=== PATIENT | male | born 1965 | race Caucasian/White ===

== ENCOUNTER 2016-10-16 10:37 | Inpatient (IN) ==
--- NOTE | 2016-10-15 20:59 | Discharge Summary ---
<Ellen Quinonez - Last Filed: 10/15/16 20:57> Date of Encounter: 10/15/16 - Discharge Diagnosis (1) Arthritis of knee, left Priority: Primary Status: Acute (2) Chronic renal disease Priority: Secondary Status: Chronic Qualifiers: Chronic kidney disease stage: stage 3 (moderate) Qualified Code(s): N18.3 - Chronic kidney disease, stage 3 (moderate) (3) Toe ulcer Priority: Secondary Status: Acute Comments: RIGHT - Started on Keflex by PCP on Sunday10/12/16. 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 Qualified Code(s): E11.8 - Type 2 diabetes mellitus with unspecified complications - Discharge Medications Home Medications: Albuterol Sulfate [Albuterol Inhaler] 2 puff PO DAILY PRN 12/07/14 [History] Simvastatin [Zocor] 40 mg PO HS 12/07/14 [History] Allopurinol [Zyloprim 100 MG] 100 mg PO QPM PRN 12/02/15 [History] Insulin ASPART [Novolog Flexpen] 60 unit SQ TID 03/17/16 [History] Ipratropium/Albuterol Neb [Duoneb] 3 ml IH Q6HR PRN 03/17/16 [History] Omeprazole [PriLOSEC] 20 mg PO Q48H 03/17/16 [History] Potassium Citrate [Urocit-K] 10 meq PO TID 03/17/16 [History] Aspirin Enteric Coated [Aspirin EC] 325 mg PO DAILY #21 tablet. 10/15/16 [Rx] OxyCODONE Immed Rel [Roxicodone 5 MG] 5 - 10 mg PO Q6HR PRN #40 tablet 10/15/16 [Rx] Amitriptyline [Elavil] 50 mg PO HS PRN 10/16/16 [History] Gabapentin [Neurontin] 300 mg PO BID 10/16/16 [History] Insulin DETEMIR [Levemir] 60 unit SQ BID 10/16/16 [History] Lisinopril [Zestril] 10 mg PO DAILY 10/16/16 [History] Allergies/Adverse Reactions: Allergies No Known Allergies Allergy (Verified 10/16/16 14:11) Primary care physician: Mami Bernabe CNP - Patient Status Disposition: Home, Self-Care Condition: Good - Discharge Instructions Follow Up With: Mami Bernabe CNP [Primary Care Provider] - - Hospital Course Hospital course: Mr. Ortiz is a 51 year old male - Time Spent with Patient Total time spent providing and/or coordinating discharge services: <Alfred Iqbal - Last Filed: 10/17/16 06:41> Date of Encounter: 10/17/16 Time of Encounter: 06:40 - Discharge Diagnosis (1) Diabetes Priority: Secondary Status: Chronic Qualifiers: Diabetes mellitus type: type 2 Diabetes mellitus complication status: with unspecified complications Diabetes mellitus nursing home insulin use: with nursing home use Qualified Code(s): E11.8 - Type 2 diabetes mellitus with unspecified complications; Z79.4 - termite treater (current) use of insulin (2) Hypertension Priority: Secondary Status: Chronic Qualifiers: Hypertension type: essential hypertension Qualified Code(s): I10 - Essential (primary) hypertension (3) Obesity Priority: Secondary Status: Chronic Qualifiers: Obesity type: unspecified obesity type Obesity severity: morbid Qualified Code(s): E66.01 - Morbid (severe) obesity due to excess calories (4) Arthritis of knee, left Priority: Primary Status: Acute (5) Chronic renal disease Priority: Secondary Status: Chronic Qualifiers: Chronic kidney disease stage: stage 3 (moderate) Qualified Code(s): N18.3 - Chronic kidney disease, stage 3 (moderate) (6) Toe ulcer Priority: Secondary Status: Chronic Qualifiers: Laterality: right Non-pressure ulcer stage: unspecified non-pressure ulcer stage Qualified Code(s): L97.519 - Non-pressure chronic ulcer of other part of right foot with unspecified severity Labs on day of discharge: Labs from last 24 hours 10/16/16 10:53 POC Glucose 204 H Primary care physician: Mami Bernabe CNP - Patient Status Functional capacity at discharge: uses cane/walker Overall status at discharge: patient is progressing back to baseline - Hospital Course Hospital course: Mr. Ortiz is a 51 year old male The patient had an uneventful postoperative course. They received antibiotics and physical therapy and were discharged in stable condition. There will follow -up in the office in 2 weeks. Aspirin DVT prophylaxis - Time Spent with Patient Total time spent providing and/or coordinating discharge services:
--- NOTE | 2016-10-16 11:31 | History & Physical Report ---
Date of Encounter: 10/16/16 Time of Encounter: 11:31 24 Hour HP Update - Instructions Instructions: If the History and Physical is less than 30 days old and was completed prior to A.M. admission and or procedure and has NOT been updated on calendar day of procedure please complete this update prior to performing procedure. - Update Patient reports changes in Medical Condition: No Changes in examination, assessment, or condition: No Changes in Medication: No Preop tests/diagnostics Reviewed: Yes Surgery Remains Indicated: Yes Consent for Planned Operative Procedure(s) Verified: Yes - Pre-Operative Checklist Preoperative Checklist Indicated: No Prophylactic Antibiotic Ordered: Yes Is VTE Prophylaxis Indicated?: Yes
[2016-10-16] MEDS ORDERED: CeFAZolin Pre 3,000 MG/100 ML 3,000 MG/100 ML BAG IVPB ONE (11:35)
[2016-10-16] MEDS ORDERED: Albuterol 2.5 MG/3 ML NEBULIZER IH ONE (11:35)
[2016-10-16] MEDS ORDERED: Ringers Solution, Lactated 1,000 ML IVC SCH (11:45)
--- NOTE | 2016-10-16 11:56 | Anesthesia Evaluation PreOp ---
Date of Encounter: 10/16/16 Time of Encounter: 11:54 - Past History Planned Operation: Left Total Knee Arthroplasty Cardiac History: HTN, Hyperlipidemia Pulmonary History: Other (chronic bronchitis) PERINATAL TECH History: Denies Any Significant HX Other Medical History: Renal (stage 3 CKD), Diabetes Type II, GERD, Other ( obesity BMI=58.6, RA) Anesthesia History: No Prior Anesthetic Complications, Past Anesthesia Alcohol Use: none Drug use: none Medications and Allergies Albuterol Sulfate [Albuterol Inhaler] 2 puff PO DAILY PRN 12/07/14 [History] Insulin Glargine,Hum.rec.anlog [Lantus Solostar] 60 unit SQ BID 12/07/14 [ History] Lisinopril [Zestril] 5 mg PO DAILY 12/07/14 [History] Simvastatin [Zocor] 40 mg PO DAILY 12/07/14 [History] Allopurinol [Zyloprim 100 MG] 100 mg PO QPM PRN 12/02/15 [History] Gabapentin [Neurontin] 300 mg PO HS 02/27/16 [History] Amitriptyline [Elavil] 25 mg PO DAILY 03/17/16 [History] Insulin ASPART [Novolog Flexpen] 60 unit SQ TID 03/17/16 [History] Ipratropium/Albuterol Neb [Duoneb] 3 ml IH Q6HR 03/17/16 [History] Omeprazole [PriLOSEC] 20 mg PO Q48H 03/17/16 [History] Potassium Citrate [Urocit-K] 10 meq PO TID 03/17/16 [History] Aspirin Enteric Coated [Aspirin EC] 325 mg PO DAILY #21 tablet. 10/15/16 [Rx] OxyCODONE Immed Rel [Roxicodone 5 MG] 5 - 10 mg PO Q6HR PRN #40 tablet 10/15/16 [Rx] Allergies No Known Allergies Allergy (Verified 03/17/16 09:56) - Meds/Allergy Pre-op Review Medications Reviewed: Yes Allergies Reviewed: Yes Beta Blockers on Current Med List: No Anesthesia Results - Labs Laboratory Tests 09/27/16 10/05/16 10/05/16 15:13 15:49 15:49 WBC 8.3 Hgb 12.4 L Hct 40.4 Plt Count 380 PT 12.2 H INR 1.1 APTT 29.3 Sodium 138 Potassium 4.1 BUN 20 Creatinine 1.35 H - Imaging EKG: report reviewed (12/05/2015 ST, low QRS in precordial leads) Anesthesia Exam O2 Sat Height 1.8 m Height 1.8 m Weight 190.509 kg Weight 190.509 kg O2 Sat by Pulse Oximetry 96 Vital Signs Temp Pulse Resp BP Pulse Ox 98.1 F 118 18 169/92 96 10/16/16 10:56 10/16/16 10:56 10/16/16 10:56 10/16/16 10:56 10/16/16 10:56 Height: 5'1'' Weight: 420 lbs NPO (# of Hours): 8 Pain Scale: 7 (left knee) Pain Scale Used: Numeric (1 - 10) - HEENT Pupil (Motor): EOMI Mallampati: III Teeth: Normal Oral Opening: Greater than 3 - PERINATAL TECH LOC: Oriented PERINATAL TECH Motor: Normal RUE, Normal LUE, Normal RLE, Normal LLE, Normal Face PERINATAL TECH Sensory: Normal: RUE, LUE, Face, Deficit: RLE, LLE - Cardiac Rhythm: Regular Murmur: None - Pulmonary Breath Sounds: bilateral Clear Respiratory Effort: Symmetrical Anesthesia Assess/Plan ASA Score: 3 Modified Florence Scale for Level of Consciousness: Cooperative, oriented, and tranquil Anesthetic Plan: General, Regional Monitoring Plan: Standard Monitors Recovery Plan: PACU
[2016-10-16] MEDS ORDERED: *HR* FentaNYL (PF) 100 MCG/2 ML VIAL ONE (12:05)
[2016-10-16] MEDS ORDERED: Lidocaine -MPF 2% 2 ML VIAL ONE (12:05)
[2016-10-16] MEDS ORDERED: *HR* Midazolam HCl 2 MG/2 ML VIAL ONE (12:05)
[2016-10-16] MEDS ORDERED: Dexamethasone 4 MG/ML VIAL ONE (12:05)
[2016-10-16] MEDS ORDERED: Ondansetron 4 MG/2 ML VIAL ONE (12:05)
[2016-10-16] MEDS ORDERED: *HR* Propofol 200 MG/20 ML VIAL IVP ONE ×2 (12:06→15:45)
--- NOTE | 2016-10-16 14:18 | Anesthesia Procedures ---
Date of Encounter: 10/16/16 Time of Encounter: 15:35 Procedures: Anesthesia - Nerve Block Procedure Date: 10/16/16 Time: 15:35 Checklist: Correct Patient Identifier, Correct procedure Correct side: Left Monitor Applied: EKG, BP, Pulse Oximetry Supplemental Oxygen via Nasal Cannula (L/min): 2 Sedation: Versed (mg): 2 Sedation: Fentanyl (mcg): 100 Indication: Post Op Analgesia Pre-op Neuro Deficits: No Block Type: Femoral, Other (iPACK) Catheter placed: No Sterile Technique: Yes Ultrasound used: Yes Anatomy identified: Yes Visual spread of Local: Yes Neuro Stimulation: Yes Nerve Stimulator Range: 0.2 - 0.4 mA Blood on Needle Aspiration: No Smooth Injection of Local: Yes Pain with Injection of Local: No Prep: Chlorhexadine Needle: 22 x 50 mm Stimuplex (with 8 of decadron), 21 x 100 mm Stimuplex Local: 0.25% Bupivicaine w/Clonidine 20 mcg/cc (for iPACK 30 ml), Ropivacaine ( wi) Volume (cc): 30 Number of Attempts: 1 Complications: None/effective block Vitals: vss
[2016-10-16] MEDS ORDERED: ROPIVACAINE HCL/PF 0.5% 30 ML VIAL ONE (15:23)
[2016-10-16] MEDS ORDERED: Bupivacaine/Clonidine Syringe 1 EACH SYRINGE ONE (15:24)
--- NOTE | 2016-10-16 16:47 | Orthopedic Operative Note ---
Date of procedure: 10/16/16 Pre-op diagnosis: Left knee arthritis Post-op diagnosis: same Procedure: Procedure: Left Total knee replacement Estimated blood loss: 400 cc Hardware: Metal and polyethylene replacement: Biomet Femur: 75, 20 x 120 Tibia : 83, 16 x 80 Danna insert: 12 Patella: 40 Exam Under anesthesia: Loss full extension 10 degrees anterior laxity Procedural Notes: Grade 4 arthritic changes medial compartment patellofemoral joint, absent ACL graft. Operative procedure: The patient was brought to the operating room and placed on the operating room table. After general anesthesia was administered the operative knee was examined. Findings were noted in the exam under anesthesia. The operative extremity was prepped and draped in sterile surgical fashion. The patient received IV antibiotics prior to skin incision. A standard midline incision was made centered over the patella. The incision was made through the skin and subcutaneous tissue. A medial parapatellar tendon approach was performed. Care was taken to preserve tissue along the medial aspect of the patella. And to protect the patella tendon. The deep MCL was released off the medial tibia. The infra patella fat pad was excised. Knee was brought into flexion. Patient noted to have grade 4 arthritic changes medial compartment and patellofemoral joint, absent ACL graft. The entry hole was made for the intramedullary femoral guide. The guide was seated in 6 degrees of valgus. Anterior cut was made followed by the distal cut. The PCL the medial and the lateral menisci were excised. The tibia was subluxed forward. The entry hole was made for the intramedullary tibial guide. Guide was seated to resect 2 mm off the more abnormal side. The knee was brought into flexion the distal femur was sized to a 75. The femur was first reamed to a 20 x 120. The femoral guide was seated, the anterior cut was made followed by the posterior condylar cut, followed by the chamfer cuts. The finishing guide was seated the box cut was made. Trial had good fit and fixation The tibia was sized to a an 83 The tibia was first reamed 16 x 80. Trial reduction revealed full extension no varus valgus instability with the appropriate 12 insert. The patella was everted and cut was made at the level of the insertion of the quadriceps and patella tendon. The patella was sized to a 40 the guide was seated and the lug holes are drilled. Trial reduction revealed excellent patella tracking. All trial components were removed all bony surfaces were irrigated. Components were assembled on the back table. The femur was cemented first followed by the tibia. The 12 Danna was seated and secured. The knee was brought into full extension. The patella was cemented and held in place with the patellar holding clamp. After the cement had hardened, the knee sat for 2 minutes with a Betadine saline solution. The knee was then irrigated out with 2 L of pulse irrigation. The extensor mechanism was closed with #2 FiberWire suture and #2 PDS suture. The subcutaneous tissue was then irrigated and closed deep with #1 PDS suture superficially with 0 PDS suture and skin was closed with skin roland The patient was then placed in a sterile dressing and a postoperative brace extubated and transferred to recovery room in stable condition. Anesthesia: KOMAL Surgeon: Alfred Iqbal Condition: stable Disposition: PACU
[2016-10-16] MEDS ORDERED: Ipratropium/Albuterol Neb 3 ML IH PRN (16:55)
[2016-10-16] MEDS: *HR* HYDROmorphone (PF) 1 MG/ML SYRINGE IVP PRN ×2 (17:29→17:35)
--- NOTE | 2016-10-16 17:47 | Anesthesia Evaluation Post Op ---
Date of Encounter: 10/16/16 Time of Encounter: 17:45 - Vital Signs Vital Signs: vss - Lungs Lungs: Clear Ascult./Percussion - Airway Airway: Non-obstructed - Cardiovascular Regular Rate, Baseline Rhythm - Mental Status Mental Status: Alert & Oriented, Answers Appropriately - Pain Pain Scale: 1 Pain Scale used: Numeric (1 - 10) - Nausea Vomiting Nausea Vomiting: Not Present - Hydration Hydration: Tolerates oral liquids, Ice chips - Discharge PostOp Status: Transfer Patient to floor
[2016-10-16] MEDS ORDERED: Naloxone 0.4 MG/ML INJ IVP PRN (17:52)
[2016-10-16] MEDS ORDERED: MOM Conc 10 ML UD.LIQ PO PRN (17:52)
[2016-10-16] MEDS ORDERED: D5% in Water 1,000 ML IVC PRN (17:52)
[2016-10-16] MEDS ORDERED: Sennosides 8.6 MG TABLET PO PRN (17:52)
[2016-10-16] MEDS ORDERED: ceFAZolin 3,000 MG in D5% in Water 100 ML IVPB SCH (17:52)
[2016-10-16] MEDS ORDERED: Insulin LISPRO 300 UNITS/3 ML VIAL SQ SCH ×2 (17:52→21:00)
[2016-10-16] MEDS ORDERED: Dextrose Gel 15 GM PO PRN ×2 (17:52)
[2016-10-16] MEDS ORDERED: *HR* Dextrose 50 % in Water (Syg) 50 ML SYRINGE IVP PRN (17:52)
[2016-10-16] MEDS ORDERED: Temazepam 15 MG CAPSULE PO PRN (17:52)
[2016-10-16] MEDS ORDERED: *HR* HYDROmorphone (PF) 1 MG/ML SYRINGE IVP PRN (17:52)
[2016-10-16] MEDS ORDERED: *HR* Enoxaparin 30 MG/0.3 ML SYRINGE SQ SCH (18:00)
[2016-10-16 18:33] LABS: Hematocrit 36.4 % (37.5-50.1); Hemoglobin 11.4 g/dL (12.9-16.9)
[2016-10-16] MEDS: *HR* OxyCODONE Immed Rel 5 MG TABLET PO PRN (18:53)
[2016-10-16] MEDS: *HR* Enoxaparin 30 MG/0.3 ML SYRINGE SQ SCH (18:53)
[2016-10-16] MEDS: Ringers Solution, Lactated 1,000 ML IVC SCH (18:54)
[2016-10-16] MEDS ORDERED: Insulin DETEMIR 100 UNIT/ML X5UNITS SQ SCH (21:00)
[2016-10-16] MEDS ORDERED: NON-FORMULARY MEDICATION 1 EACH EACH (Insulin Detemir 60 UNIT) SQ SCH (21:00)
[2016-10-16] MEDS ORDERED: Gabapentin 300 MG CAPSULE PO SCH (21:00)
[2016-10-16] MEDS ORDERED: Potassium Citrate 10 MEQ TABLET.ER PO SCH (21:00)
[2016-10-16] MEDS: Insulin DETEMIR 100 UNIT/ML X5UNITS SQ SCH (21:45)
[2016-10-16] MEDS: Insulin LISPRO 300 UNITS/3 ML VIAL SQ SCH (21:46)
[2016-10-16] MEDS: Gabapentin 300 MG CAPSULE PO SCH (21:47)
[2016-10-16] MEDS: ceFAZolin 3,000 MG in D5% in Water 100 ML IVPB SCH (23:46)
[2016-10-17] MEDS: *HR* Enoxaparin 30 MG/0.3 ML SYRINGE SQ SCH ×2 (05:22→18:06)
[2016-10-17] MEDS: Ringers Solution, Lactated 1,000 ML IVC SCH (05:22)
[2016-10-17 06:37] LABS: Hematocrit 34.8 % (37.5-50.1); Hemoglobin 11.3 g/dL (12.9-16.9)
--- NOTE | 2016-10-17 06:42 | Orthopedics Progress Note ---
Date of Encounter: 10/17/16 Time of Encounter: 06:41 - Assessment and Plan (1) Diabetes Current Visit: No Status: Chronic Qualifiers: Diabetes mellitus type: type 2 Diabetes mellitus complication status: with unspecified complications Diabetes mellitus [facility] use: with [facility] use Qualified Code(s): E11.8 - Type 2 diabetes mellitus with unspecified complications; Z79.4 - watermelon harvesting supervisor (current) use of insulin (2) Hypertension Current Visit: No Status: Chronic Qualifiers: Hypertension type: essential hypertension Qualified Code(s): I10 - Essential (primary) hypertension (3) Obesity Current Visit: No Status: Chronic Qualifiers: Obesity type: unspecified obesity type Obesity severity: morbid Qualified Code(s): E66.01 - Morbid (severe) obesity due to excess calories (4) Arthritis of knee, left Current Visit: Yes Status: Acute (5) Chronic renal disease Current Visit: Yes Status: Chronic Qualifiers: Chronic kidney disease stage: stage 3 (moderate) Qualified Code(s): N18.3 - Chronic kidney disease, stage 3 (moderate) (6) Toe ulcer Current Visit: Yes Status: Chronic Qualifiers: Laterality: right Non-pressure ulcer stage: unspecified non-pressure ulcer stage Qualified Code(s): L97.519 - Non-pressure chronic ulcer of other part of right foot with unspecified severity Subjective Interval history: Patient was seen this morning doing well without complaints. Afebrile vital signs stable. Operative extremity: Neurovascularly intact Dressing clean dry and intact Calves nontender Assessment and plan: Continue with postoperative care Hematocrit 34 discharged today Objective Vital signs: Vital Signs Temp Pulse Resp BP Pulse Ox 10/17/16 06:36 98.1 F 95 18 135/94 96 10/17/16 03:40 97.5 F L 91 18 165/79 92 10/16/16 23:10 98.2 F 99 18 149/93 94 10/16/16 21:42 98.1 F 96 18 150/86 93 10/16/16 20:20 98.2 F 90 18 145/90 95 10/16/16 20:15 94 10/16/16 19:15 97.7 F 93 18 136/83 93 10/16/16 18:15 97.9 F 88 16 133/78 92 10/16/16 17:47 97.5 F L 84 18 124/75 95 10/16/16 17:37 86 18 116/71 96 10/16/16 17:27 86 20 118/63 94 10/16/16 17:17 97.1 F L 100 20 125/71 100 10/16/16 15:27 104 16 140/90 99 10/16/16 14:51 103 148/88 98 10/16/16 12:20 18 169/92 96 10/16/16 10:56 98.1 F 118 18 169/92 96 Intake and Output 10/16/16 10/16/16 10/17/16 15:59 23:59 07:59 Intake Total 100 / 100 1100 / 1100 Output Total 400 / 400 550 / 550 Balance -300 / -300 550 / 550 Intake: IV Fluids 100 / 100 1100 / 1100 Lactated Ringers 1,000 ML 1000 / 1000 @ 75 mls/hr IVC .[id number] [facility] Rx#:[id number] Ancef Premix 3,000 MG/100 100 / 100 ML 3,000 mg In 100 ml @ 200 mls/hr IVPB PREOP ONE Rx#:[id number] Ancef 3,000 MG In 100 / 100 Dextrose 5% 100 ML @ 200 mls/hr IVPB Q8HR [facility] Rx#: [id number] Output: Urine 550 / 550 Estimated Blood Loss 400 / 400 Other: Weight 190.509 kg 197.1 kg Blood Glucose* 204 280 Patient Weight 10/17/16 23:59 Weight 197.1 kg - Labs CBC & BMP: 10/17/16 05:58 Labs: Abnormal lab results Hgb 11.3 g/dL (12.9-16.9) L 10/17/16 05:58 Hct 34.8 % (37.5-50.1) L 10/17/16 05:58 POC Glucose 280 (58-89) H 10/16/16 21:19 - VTE Documentation of Mechanical Device: Venous foot pump, device Consult Discharge Plan - Plan Referrals: Mami Bernabe, SENIOR DIGITAL DESIGNER [Primary Care Provider] -
[2016-10-17 06:51] LABS: BUN/Creatinine Ratio 15 (6-26); Blood Urea Nitrogen 22 mg/dL (8-26); Carbon Dioxide 26 mEq/L (19-29); Chloride 100 mEq/L (98-109); Glucose 340 mg/dL (70-99); Osmolality,Calculated 293 (280-300); Potassium 4.9 mEq/L (3.5-4.5); Sodium 133 mEq/L (136-145); eGFR For African Americans > 60 (> 60); eGFR For Non-African Americans 50 (> 60)
[2016-10-17] MEDS: Insulin DETEMIR 100 UNIT/ML X5UNITS SQ SCH ×2 (07:33→20:56)
[2016-10-17] MEDS: Gabapentin 300 MG CAPSULE PO SCH ×2 (07:33→20:56)
[2016-10-17] MEDS: ceFAZolin 3,000 MG in D5% in Water 100 ML IVPB SCH (07:33)
[2016-10-17] MEDS: Insulin LISPRO 300 UNITS/3 ML VIAL SQ SCH ×4 (07:33→20:57)
[2016-10-17] MEDS: *HR* OxyCODONE Immed Rel 5 MG TABLET PO PRN ×3 (07:40→18:06)
[2016-10-18] MEDS: *HR* Enoxaparin 30 MG/0.3 ML SYRINGE SQ SCH ×2 (04:44→17:33)
[2016-10-18 06:26] LABS: Hematocrit 33.6 % (37.5-50.1); Hemoglobin 10.8 g/dL (12.9-16.9)
[2016-10-18 06:49] LABS: BUN/Creatinine Ratio 15 (6-26); Blood Urea Nitrogen 21 mg/dL (8-26); Calcium 9.1 mg/dL (8.6-10.8); Carbon Dioxide 28 mEq/L (19-29); Chloride 100 mEq/L (98-109); Glucose 156 mg/dL (70-99); Osmolality,Calculated 286 (280-300); Potassium 4.1 mEq/L (3.5-4.5); Sodium 135 mEq/L (136-145); eGFR For African Americans > 60 (> 60); eGFR For Non-African Americans 52 (> 60)
--- NOTE | 2016-10-18 06:58 | Orthopedics Progress Note ---
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 of insulin (2) Hypertension Current Visit: No Status: Chronic Qualifiers: Hypertension type: essential hypertension Qualified Code(s): I10 - Essential (primary) hypertension (3) Obesity Current Visit: No Status: Chronic Qualifiers: Obesity type: unspecified obesity type Obesity severity: morbid Qualified Code(s): E66.01 - Morbid (severe) obesity due to excess calories (4) Arthritis of knee, left Current Visit: Yes Status: Acute (5) Chronic renal disease Current Visit: Yes Status: Chronic Qualifiers: Chronic kidney disease stage: stage 3 (moderate) Qualified Code(s): N18.3 - Chronic kidney disease, stage 3 (moderate) (6) Toe ulcer Current Visit: Yes Status: Chronic Qualifiers: Laterality: right Non-pressure ulcer stage: unspecified non-pressure ulcer stage Qualified Code(s): L97.519 - Non-pressure chronic ulcer of other part of right foot with unspecified severity Subjective Interval history: Patient was seen this morning doing well without complaints. Afebrile vital signs stable. Operative extremity: Neurovascularly intact Dressing clean dry and intact Calves nontender Assessment and plan: Continue with postoperative care discharged today Objective Vital signs: Vital Signs Temp Pulse Resp BP Pulse Ox 10/17/16 23:23 98.2 F 102 16 162/63 94 10/17/16 20:33 98.3 F 113 18 136/91 96 10/17/16 15:03 98.7 F 118 20 129/78 96 10/17/16 11:16 98.1 F 105 20 147/82 97 Intake and Output 10/17/16 10/17/16 10/18/16 15:59 23:59 07:59 Intake Total 440 / 440 240 / 240 Output Total 400 / 400 300 / 300 450 / 450 Balance 40 / 40 -60 / -60 -450 / -450 Intake: Oral 440 / 440 240 / 240 Output: Urine 400 / 400 300 / 300 450 / 450 Other: Meal Lunch Dinner Percent of Meal Consumed 100% 100% Blood Glucose* 272 217 - Labs CBC & BMP: 10/18/16 06:01 10/18/16 06:01 Labs: Abnormal lab results Hgb 10.8 g/dL (12.9-16.9) L 10/18/16 06:01 Hct 33.6 % (37.5-50.1) L 10/18/16 06:01 Sodium 135 mEq/L (136-145) L 10/18/16 06:01 Creatinine 1.43 mg/dL (0.72-1.25) H 10/18/16 06:01 Est GFR (Non-Af Amer) 52 (> 60) L 10/18/16 06:01 Glucose 156 mg/dL (70-99) H 10/18/16 06:01 POC Glucose 217 (58-89) H 10/17/16 20:32 - VTE Documentation of Mechanical Device: Venous foot pump, device Consult Discharge Plan - Plan Additional Instructions: Discharge Instructions: Total Knee Replacement Please call [facility] ([phone]), your Primary Care Physician, or report to the Emergency Room if you have any of the following symptoms: Nausea, vomiting, fever greater that 101.5, swelling, chest pain, shortness of breath, increased pain/redness/drainage/odor for your incision site, numbness/ tingling, or any other concerning symptoms. ACTIVITY:Weight-bearing as tolerated. You may progress off support (crutches or walker) as tolerated. MEDICATIONS: Upon discharge resume your home medications. Take all the medications as prescribed. Take a stool softener if taking narcotic pain medications. Stool softeners are only effective if you drink enough fluids. Drink 6-8 glass of water or fluids a day, unless this is not allowed for another health problem. Despite using stool softeners, if you haven't had a bowel movement in 3 days, please switch to a gentle laxative. Gentle laxatives are sold over the counter. You should have a bowel movement within 24 hours, if not call the office. You will be discharged from the hospital with a prescription for pain medication. You are encouraged to decrease the use of narcotic pain medication as tolerated. Should you require a refill, please call the office. [facility] prescribes narcotic pain medication for only 4-6 weeks after surgery. If you require pain medication beyond this time period, you may be referred to your Primary Care Physician or to the Pain Clinic for further evaluation. Plan ahead for refills on pain medication as many narcotics either need to be picked up at the office or mailed. It is best to call 48-72 hours in advance of needing a prescription refill so you don't run out of medication. To help control the post-operative pain, you may take NSAIDs (Aleve,Advil, Motrin, Ibuprofen, Naprosyn) or Tylenol as prescribed on the bottle in addition to the pain medication. ANTICOAGULATION (blood thinners): Continue your Aspirin, Lovenox or Coumadin as prescribed to help prevent a blood clot in the leg or in the lungs. As long as your incision remains dry and you tolerate the NSAIDs (Aleve, Advil, Motrin, ibuprofen, naprosyn), it is OK to use the NSAIDS while you are taking your anticoagulation medication. Should your incision start to drain, stop the NSAID and contact our office. Common symptoms of blood clot in the legs include: localized pain, swelling, calf tenderness, redness or discoloration of the skin. Blood clot in the lung symptoms include: shortness of breath, rapid pulse, sweating, and chest pain that worsens with deep breathing, coughing up blood, lightheadedness, feelings of anxiety. If you experience any of these symptoms notify your physician immediately, go to the emergency room, or if having trouble breathing, call 911. WOUND CARE: Leave the dressing on for 7 to 10days. You may change the dressing if it becomes saturated greater than 50%. Do not get the dressing wet at anytime. Wash your hands with antibacterial soap, rinse and dry prior to any wound care. If you have roland the visiting nurse or rehab facility can remove the stapes 10-14 days after surgery and place steri-strips across the wound. Leave the steri-strips in place until they fall off on their won. You may let water from the shower run on top of the steri-strips. If you do not have a visiting nurse or rehab facility, you will need to return to the office at 10-14 days for the roland to be removed. If you have itching or redness around the dressing call the office. FOLLOW-UP: Please follow up with your surgeon in the orthopedic clinic in 4 weeks from the day of surgery. If you have roland that need to be removed, you will need to come back to the office in 10-14 days from the day of surgery. Referrals: Alfred Iqbal MD [Partnered Physician] - 11/15/16 5:20 pm Ellen Quinonez PAC [Physician Drapery Cutter] - 10/26/16 2:45 pm
[2016-10-18] MEDS: Ondansetron 4 MG/2 ML VIAL IVP PRN ×2 (08:33→17:01)
[2016-10-18] MEDS: Insulin LISPRO 300 UNITS/3 ML VIAL SQ SCH ×4 (09:04→22:14)
[2016-10-18] MEDS: Insulin DETEMIR 100 UNIT/ML X5UNITS SQ SCH ×2 (09:15→22:14)
[2016-10-18] MEDS: *HR* OxyCODONE Immed Rel 5 MG TABLET PO PRN (12:38)
[2016-10-18] MEDS: Gabapentin 300 MG CAPSULE PO SCH ×2 (12:38→22:14)
--- NOTE | 2016-10-18 13:06 | Event Note ---
Date of Encounter: 10/18/16 Time of Encounter: 01:00 Call placed to Lexi Castro CNP with [facility] [place] re: patient's right foot wound. She states that Mami Suarez CNP saw patient previously and prescribed patient Keflex and applied Joyce Boot to right foot/ankle for non-pressure ulcer. Discussed patient's post-operative situation and agreed upon wound care consultation for Joyce Boot replacement. Discussed the above with patient who agreed with plan and consult to wound care placed. He also informed me that he is planning to stay tonight secondary to pain and nausea. One time dose of Phenergan ordered for patient as trial as patient states Zofran not helping with the nausea and dry heaves.
[2016-10-18] MEDS ORDERED: *HR* Promethazine 25 MG/ML VIAL IVP ONE (13:18)
[2016-10-18] MEDS ORDERED: Acetaminophen IV 1,000 MG/100 ML INFUS..BTL IVPB PRN (14:55)
[2016-10-18] MEDS: Ringers Solution, Lactated 1,000 ML IVC SCH ×2 (21:52→21:53)
[2016-10-19] MEDS: *HR* OxyCODONE Immed Rel 5 MG TABLET PO PRN ×2 (01:00→08:37)
[2016-10-19] MEDS: *HR* Enoxaparin 30 MG/0.3 ML SYRINGE SQ SCH (06:22)
--- NOTE | 2016-10-19 08:19 | Orthopedics Progress Note ---
Date of Encounter: 10/19/16 Time of Encounter: 08:19 - Assessment and Plan (1) Diabetes Current Visit: No Status: Chronic Qualifiers: Diabetes mellitus type: type 2 Diabetes mellitus complication status: with unspecified complications Diabetes mellitus group home insulin use: with group home use Qualified Code(s): E11.8 - Type 2 diabetes mellitus with unspecified complications; Z79.4 - dedicated intermodal truck driver (current) use of insulin (2) Hypertension Current Visit: No Status: Chronic Qualifiers: Hypertension type: essential hypertension Qualified Code(s): I10 - Essential (primary) hypertension (3) Obesity Current Visit: No Status: Chronic Qualifiers: Obesity type: unspecified obesity type Obesity severity: morbid Qualified Code(s): E66.01 - Morbid (severe) obesity due to excess calories (4) Arthritis of knee, left Current Visit: Yes Status: Acute (5) Chronic renal disease Current Visit: Yes Status: Chronic Qualifiers: Chronic kidney disease stage: stage 3 (moderate) Qualified Code(s): N18.3 - Chronic kidney disease, stage 3 (moderate) (6) Toe ulcer Current Visit: Yes Status: Chronic Qualifiers: Laterality: right Non-pressure ulcer stage: unspecified non-pressure ulcer stage Qualified Code(s): L97.519 - Non-pressure chronic ulcer of other part of right foot with unspecified severity Subjective Interval history: Patient was seen this morning doing well without complaints. Afebrile vital signs stable. Operative extremity: Neurovascularly intact Dressing clean dry and intact Calves nontender Assessment and plan: Continue with postoperative care discharged today Objective Vital signs: Vital Signs Temp Pulse Resp BP Pulse Ox 10/19/16 07:27 98.1 F 106 18 167/94 92 10/19/16 00:47 98.1 F 107 153/77 97 10/18/16 20:20 98.7 F 107 18 153/79 96 10/18/16 17:15 98.5 F 106 16 154/94 93 10/18/16 11:01 98.4 F 96 16 151/79 94 Intake and Output 10/18/16 10/19/16 10/19/16 23:59 07:59 15:59 Intake Total 0 / 0 Output Total 750 / 750 1400 / 1400 Balance -750 / -750 -1400 / -1400 Intake: IV Fluids 0 / 0 Ofirmev 1,000 mg/100 ml 1 0 / 0 ,000 mg In 100 ml @ 400 mls/hr IVPB Q6HR PRN Rx#: [id number] Output: Urine 750 / 750 1400 / 1400 Other: Meal Dinner Percent of Meal Consumed 0% Weight 197 kg Blood Glucose* 170 237 Patient Weight 10/19/16 23:59 Weight 197 kg - Labs CBC & BMP: 10/18/16 06:01 10/18/16 06:01 Labs: Abnormal lab results Hgb 10.8 g/dL (12.9-16.9) L 10/18/16 06:01 Hct 33.6 % (37.5-50.1) L 10/18/16 06:01 Sodium 135 mEq/L (136-145) L 10/18/16 06:01 Creatinine 1.43 mg/dL (0.72-1.25) H 10/18/16 06:01 Est GFR (Non-Af Amer) 52 (> 60) L 10/18/16 06:01 Glucose 156 mg/dL (70-99) H 10/18/16 06:01 POC Glucose 170 (58-89) H 10/18/16 20:26 - VTE Documentation of Mechanical Device: Venous foot pump, device Consult Discharge Plan - Plan Additional Instructions: Discharge Instructions: Total Knee Replacement Please call [facility] ([phone]), your Primary Care Physician, or report to the Emergency Room if you have any of the following symptoms: Nausea, vomiting, fever greater that 101.5, swelling, chest pain, shortness of breath, increased pain/redness/drainage/odor for your incision site, numbness/ tingling, or any other concerning symptoms. ACTIVITY:Weight-bearing as tolerated. You may progress off support (crutches or walker) as tolerated. MEDICATIONS: Upon discharge resume your home medications. Take all the medications as prescribed. Take a stool softener if taking narcotic pain medications. Stool softeners are only effective if you drink enough fluids. Drink 6-8 glass of water or fluids a day, unless this is not allowed for another health problem. Despite using stool softeners, if you haven't had a bowel movement in 3 days, please switch to a gentle laxative. Gentle laxatives are sold over the counter. You should have a bowel movement within 24 hours, if not call the office. You will be discharged from the hospital with a prescription for pain medication. You are encouraged to decrease the use of narcotic pain medication as tolerated. Should you require a refill, please call the office. [facility] prescribes narcotic pain medication for only 4-6 weeks after surgery. If you require pain medication beyond this time period, you may be referred to your Primary Care Physician or to the Pain Clinic for further evaluation. Plan ahead for refills on pain medication as many narcotics either need to be picked up at the office or mailed. It is best to call 48-72 hours in advance of needing a prescription refill so you don't run out of medication. To help control the post-operative pain, you may take NSAIDs (Aleve,Advil, Motrin, Ibuprofen, Naprosyn) or Tylenol as prescribed on the bottle in addition to the pain medication. ANTICOAGULATION (blood thinners): Continue your Aspirin, Lovenox or Coumadin as prescribed to help prevent a blood clot in the leg or in the lungs. As long as your incision remains dry and you tolerate the NSAIDs (Aleve, Advil, Motrin, ibuprofen, naprosyn), it is OK to use the NSAIDS while you are taking your anticoagulation medication. Should your incision start to drain, stop the NSAID and contact our office. Common symptoms of blood clot in the legs include: localized pain, swelling, calf tenderness, redness or discoloration of the skin. Blood clot in the lung symptoms include: shortness of breath, rapid pulse, sweating, and chest pain that worsens with deep breathing, coughing up blood, lightheadedness, feelings of anxiety. If you experience any of these symptoms notify your physician immediately, go to the emergency room, or if having trouble breathing, call 911. WOUND CARE: Leave the dressing on for 7 to 10days. You may change the dressing if it becomes saturated greater than 50%. Do not get the dressing wet at anytime. Wash your hands with antibacterial soap, rinse and dry prior to any wound care. If you have roland the visiting nurse or rehab facility can remove the stapes 10-14 days after surgery and place steri-strips across the wound. Leave the steri-strips in place until they fall off on their won. You may let water from the shower run on top of the steri-strips. If you do not have a visiting nurse or rehab facility, you will need to return to the office at 10-14 days for the roland to be removed. If you have itching or redness around the dressing call the office. FOLLOW-UP: Please follow up with your surgeon in the orthopedic clinic in 4 weeks from the day of surgery. If you have roland that need to be removed, you will need to come back to the office in 10-14 days from the day of surgery. Referrals: Alfred Iqbal MD [Partnered Physician] - 11/15/16 5:20 pm Ellen Quinonez PAC [Physician Window Draper] - 10/26/16 2:45 pm
[2016-10-19] MEDS: Insulin LISPRO 300 UNITS/3 ML VIAL SQ SCH ×2 (08:30→13:25)
[2016-10-19 08:31] LABS: Hematocrit 31.4 % (37.5-50.1); Hemoglobin 10.1 g/dL (12.9-16.9)
[2016-10-19] MEDS: Ondansetron 4 MG/2 ML VIAL IVP PRN (08:37)
[2016-10-19] MEDS: Insulin DETEMIR 100 UNIT/ML X5UNITS SQ SCH (08:37)
[2016-10-19 08:45] LABS: BUN/Creatinine Ratio 12 (6-26); Blood Urea Nitrogen 16 mg/dL (8-26); Calcium 8.9 mg/dL (8.6-10.8); Carbon Dioxide 28 mEq/L (19-29); Chloride 100 mEq/L (98-109); Glucose 240 mg/dL (70-99); Osmolality,Calculated 289 (280-300); Potassium 4.3 mEq/L (3.5-4.5); Sodium 135 mEq/L (136-145); eGFR For African Americans > 60 (> 60); eGFR For Non-African Americans 58 (> 60)
[2016-10-19 11:02] VITALS: BP 175/94
[2016-10-19] MEDS: Gabapentin 300 MG CAPSULE PO SCH (12:10)
== END 2016-10-19 14:15 | disposition home or self-care (01) | DRG 470 ==
LOC: SAMDAY 10:37 → 3NENU 18:37
PROVIDERS: ADMIT Orthopaedic Surgery; ATTEND Orthopaedic Surgery